=== PATIENT | male | born 1970 ===

== ENCOUNTER 2025-01-13 08:06 | Emergency (ER) | payer OTHER, SELFPAY ==
[2025-01-13 08:11] VITALS: BP 185/102; PULSE 67; RESP 16; TEMP 36.8; O2SAT 97; BMI 30.2
--- NOTE | 2025-01-13 08:28 | ED.GENADULT ---
HPI - General Adult General Chief complaint: Lower Extremity Swelling Stated complaint: shortness of breath, swelling in legs Time Seen by Provider: 01/13/25 08:14 History of Present Illness HPI narrative: Patient is a 54-year-old gentleman who presents with lower extremity swelling bilaterally as well as shortness of breath with exertion. He has had symptoms since he started on losartan after discontinuing losartan hydrochlorothiazide 3 weeks ago. Patient also takes metoprolol at 75 mg daily and atorvastatin at 10 mg daily. His blood pressures been elevated. He has had improvement of his lower extremity edema which again is symmetric as the day progresses. He has had no orthopnea no PND no chest pain at rest. He does have limited exercise capacity. No history of heart disease. Does have a hyperlipidemia and hypertension. Related Data Home Medications ?Medication ?Instructions ?Recorded ?Confirmed atorvastatin 10 mg tablet 10 mg PO QPM 01/13/25 01/13/25 losartan 100 mg tablet 100 mg PO DAILY 01/13/25 01/13/25 metoprolol succinate 50 mg 75 mg PO DAILY 01/13/25 01/13/25 tablet,extended release 24 hr Previous Rx's ?Medication ?Instructions ?Recorded valsartan 160 1 tab PO DAILY #30 tabs 01/13/25 mg-hydrochlorothiazide 12.5 mg tablet (Diovan HCT) Allergies Allergy/AdvReac Type Severity Reaction Status Date / Time sulfamethoxazole (From Allergy Verified 01/13/25 08:19 ) trimethoprim (From ) Allergy Verified 01/13/25 08:19 Review of Systems Status of ROS: Reports: 10 or more systems reviewed and unremarkable except as noted in History and below [facility] Medical History (Updated 01/13/25 @ 09:39 by Sammy Gillette MD) Hypertension ?I10 - Essential (primary) hypertension (ICD-10) Hyperlipidemia ?E78.5 - Hyperlipidemia, unspecified (ICD-10) Social History Smoking Status: Former smoker Second hand tobacco smoke exposure: Yes How often do you have a drink containing alcohol: 2-3 times a week How many standard drinks containing alcohol do you have on a typical day: 3 or 4 How often do you have six or more drinks on one occasion: Less than monthly AUDIT-C Alcohol total score: 5 Non-prescribed substance use: denies use Exam Narrative: Exam Narrative: EXAM GENERAL: Patient appears comfortable and well. EYES: No scleral icterus. LYMPH: No supraclavicular or cervical lymphadenopathy. SKIN: Visible skin seen during exam normal or with benign process only. EXT: Trace lower extremity edema. HEART: Regular rate and rhythm with no murmurs, rubs, or gallops. LUNGS: Clear to auscultation bilaterally with no crackles or wheezes. ABD: Soft, non tender, non distended. PSYCH: Good eye contact, speech is not pressured. Const: Vital Signs, click to edit/add: Vital Signs - 24 hr 01/13/25 08:11 Temperature 98.2 F Pulse Rate [Pulse Oximeter] 67 Respiratory Rate 16 Blood Pressure [Ri ght Upper Arm] 185/102 H Pulse Oximetry 97 Oxygen Delivery Me thod Room Air Course Course ED Course: Patient has normal exam with elevated blood pressure on vital signs. I did start the workup with EKG chest x-ray urinalysis comprehensive metabolic panel CBC troponin. Vital Signs Vital signs: Initial Vital Signs Temperature 98.2 F 01/13/25 08:11 Temperature Source Temporal Artery Scan 01/13/25 08:11 Pulse Rate 67 01/13/25 08:11 Respiratory Rate 16 01/13/25 08:11 Blood Pressure 185/102 H 01/13/25 08:11 Blood Pressure Mean 129 H 01/13/25 08:11 Pulse Oximetry 97 01/13/25 08:11 Oxygen Delivery Method Room Air 01/13/25 08:11 Vital Signs Temperature 98.2 F 01/13/25 08:11 Pulse Rate 67 01/13/25 08:11 Respiratory Rate 16 01/13/25 08:11 Blood Pressure 185/102 H 01/13/25 08:11 Pulse Oximetry 97 01/13/25 08:11 Oxygen Delivery Method Room Air 01/13/25 08:11 Temperature 98.2 F 01/13/25 08:11 Pulse Rate 67 01/13/25 08:11 Respiratory Rate 16 01/13/25 08:11 Blood Pressure 185/102 H 01/13/25 08:11 Pulse Oximetry 97 01/13/25 08:11 Oxygen Delivery Method Room Air 01/13/25 08:11 Medical Decision Making MDM Narrative Medical decision making narrative: Patient presents with lower extremity edema and poor blood pressure control since changing out losartan/hydrochlorothiazide to losartan alone. His blood pressure is elevated today is very anxious. I did do a thorough workup in he has no protein in his urine his electrolytes are stable his troponin is negative EKG shows normal sinus rhythm chest x-ray is unremarkable. We did have a nice discussion I do think the most reasonable thing at this time is stop his losartan start him on Diovan hydrochlorothiazide which I do have better luck with. He does see his primary doctor back in 1 week. Lab Data Labs: Lab Results 01/13/25 01/13/25 Range/Units 08:39 09:10 WBC 5.84 (4.50-11.00) K/uL RBC 4.42 (4.30-5.90) m/uL Hgb 12.9 L (13.5-17.5) gm/dL Hct 38.5 (37.0-53.0) % MCV 87 (80-100) fL MCH 29 (26-34) pg MCHC 34 (32-36) gm/dL RDW Coeff of Charlie 13.4 (11.5-15.5) % Plt Count 189 (140-440) K/uL Neut % (Auto) 71.5 (42.0-72.0) % Lymph % (Auto) 16.8 L (20-44) % Spink % (Auto) 6.5 (0.0-11.0) % Eos % (Auto) 3.4 (0.0-7.0) % Baso % (Auto) 0.3 (0.0-3.0) % Neut # (Auto) 4.17 (1.7-7.0) K/uL Lymph # (Auto) 1.00 (0.90-2.90) K/uL Spink # (Auto) 0.40 (0.00-0.90) K/UL Eos # (Auto) 0.20 (0.00-0.50) K/uL Baso # (Auto) 0.02 (0.00-0.30) K/uL Abs Immat Gran (auto) 0.09 (0.00-0.30) K/uL Imm/Tot Granulo (auto) 1.5 % Sodium 141 (135-149) mmol/L Potassium 4.1 (3.6-5.1) mmol/L Chloride 104 (96-114) mmol/L Carbon Dioxide 29 (20-32) mmol/L Anion Gap 8 (7-15) mEq/L BUN 10 (7-30) mg/dL Creatinine 0.9 (0.5-1.5) mg/dL Estimated Creat Clear 91.65 Estimated GFR 100 ml/min Glucose 107 (60-115) mg/dL Calcium 8.8 (8.4-10.6) mg/dL Total Bilirubin 0.7 (0.1-1.5) mg/dL AST 28 (12-35) U/L ALT 37 (4-50) U/L Alkaline Phosphatase 47 (40-150) U/L Troponin I < 0.01 L (0.01-0.04) ng/mL Total Protein 6.6 (6.0-8.3) g/dL Albumin 4.3 (3.3-5.0) g/dL Urine Color Yellow (Yellow) Urine Appearance Clear (Clear) Urine pH 7.5 (5.0-8.5) Ur Specific [place] 1.015 (1.000-1.030) Urine Protein Negative (Negative) Urine Glucose (UA) Negative (Negative) Urine Ketones Negative (Negative) Urine Blood Negative (Negative) Urine Nitrite Negative (Negative) Urine Bilirubin Negative (Negative) Urine Urobilinogen 0.2 (0.2-1.0) Ur Leukocyte Esterase Negative (Negative) Discharge Plan Discharge Clinical Impression: Hypertension Patient Disposition: Home, Self-Care Condition: Stable Instructions: Hypertension (ED) Additional Instructions: Stop losartan Start Diovan hydrochlorothiazide tomorrow Continue the rest severe medications Limit salt Follow-up with your doctor next week as scheduled. Activity Level: No Restrictions Discharge Diet: Regular Prescriptions: New valsartan-hydrochlorothiazide [Diovan HCT] 160-12.5 mg tablet 1 tab PO DAILY Qty: 30 2RF No Action atorvastatin 10 mg tablet 10 mg PO QPM metoprolol succinate 50 mg tablet extended release 24 hr 75 mg PO DAILY losartan 100 mg tablet 100 mg PO DAILY Follow Up/Referrals: Tony Rush MD [Primary Care Provider] - Stand Alone Forms: Fraxion Info Instructions
[2025-01-13 08:45] LABS: Basophils Absolute Auto 0.02 K/uL (0.00-0.30); Basophils Percent Auto 0.3 % (0.0-3.0); Eosinophils Percent Auto 3.4 % (0.0-7.0); Hematocrit 38.5 % (37.0-53.0); Hemoglobin* 12.9 gm/dL (13.5-17.5); Immature Granulocytes Abs Auto 0.09 K/uL (0.00-0.30); Immature Granulocytes Pct Auto 1.5 %; Lymphocytes Percent Auto 16.8 % (20-44); Mean Corpuscular HGB Conc 34 gm/dL (32-36); Mean Corpuscular Hemoglobin 29 pg (26-34); Mean Corpuscular Volume 87 fL (80-100); Monocytes Percent Auto 6.5 % (0.0-11.0); Neutrophils Absolute Auto 4.17 K/uL (1.7-7.0); Neutrophils Percent Auto 71.5 % (42.0-72.0); Platelet Count* 189 K/uL (140-440); RDW Coefficient of Variation % 13.4 % (11.5-15.5); Red Blood Count 4.42 m/uL (4.30-5.90); White Blood Count* 5.84 K/uL (4.50-11.00)
--- OUTSIDE RECORDS SUMMARY | 2025-01-13 08:45 | XMS_ITS | Clinical Summary ---
Author Organization [employer] [facility] Address [address] [place] [id number] Care Team Providers Care Insurance Biller Name Role Phone Tony Rush MD Primary Care Provider [phone] Allergies Active Allergy Reactions Criticality Noted Date Comments Sulfamethoxazole-Trimethopri m *Unknown - Childhood Rxn Unknown 09/25/2010 Medications ibuprofen (ADVIL; MOTRIN) 600 mg tablet Take 1 tablet by mouth 4 times daily if needed. Maximum of 3200 mg in 24 hours. 0 7 Active acetaminophen (TYLENOL) 500 mg capsule Take 1,000 mg by mouth. Active benzonatate (TESSALON) 100 mg capsuleIndications :SOB (shortness of breath),Cough TAKE 1 CAPSULE(100 MG) BY MOUTH THREE TIMES DAILY NEEDED FOR COUGH 21 Capsule 2 1 Active meclizine (ANTIVERT) 25 mg tabletIndications: Vertigo Take 0.5-1 Tablets (12.5-25 mg) by mouth 3 times daily if needed for Vertigo. 30 Tablet 2 Active ondansetron (ZOFRAN ODT) 4 mg disintegrating tabletIndications: Vertigo Place 1 Tablet (4 mg) on the tongue every 8 hours if needed for Nausea/Vomi ting. 12 Tablet 2 Active LORazepam (ATIVAN) 0.5 mg tabIndications:Eduarda tigo Take 1 Tablet (0.5 mg) by mouth at bedtime if needed (Vertigo). 10 Tablet 2 Active atorvastatin (LIPITOR) 10 mg tabletIndications: Hypercholesterolem ia Take 1 Tablet (10 mg) by mouth at bedtime. 90 Tablet 3 4 Active metoprolol succinate (TOPROL XL) 50 mg sustained-release tabletIndications: Frequent PVCs,HTN (hypertension) Take 1.5 Tablets (75 mg) by mouth once daily. 135 Tablet 3 4 Active losartan (COZAAR) 100 mg tabletIndications: HTN (hypertension) Take 1 Tablet (100 mg) by mouth once daily. 90 Tablet 3 5 Active losartan-hydrochlo rothiazide (HYZAAR) 100-12.5 mg tabletIndications: HTN (hypertension) Take 1 Tablet by mouth once daily. 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 Chronic midline low back pain 01/16/2017 Hypercholesterolemia 05/11/2012 Resolved Problems Problem Noted Date Diagnosed Date Resolved Date Chronic low back pain 01/16/20172017 Kidney stone 09/14/2018 Encounters Date Type Department Care Team Description 01/13/2025 Nurse Triage [facility] [address] [place] [address] Tony Rush MD Shortness Of Breath 01/13/2025 Telephone [facility] [address] [place] [address] Toyn Rush MD Error-please disregard 12/23/2024 3:[address] Office Visit [facility] [address] [place] [address] Tony Rush MD Blood Pressure 12/23/2024 Travel 11/17/[address] [facility] [address] [place] [phone] Jenni Britton DO Dizziness from Last 3 Months Immunizations Name Administration Dates Next Due Td (Age >=7 Years) 09/06/2009,10/11/1980 Tdap 11/02/2015 Family History Medical History Relation Name Comments Brain cancer Mother Diabetes Mother Relation Name Status Comments Father Mother Alive Social History Tobacco Use Types Packs/Day Years Used Date Smoking Tobacco: Former Cigarettes Q uit: 07/01/2018 Smokeless Tobacco: Never Tobacco Cessation:Counseling Given: Not Answered Passive Exposure Comments:mom and dad smoked in child shane life Alcohol Use Standard Drinks/Week Comments Yes 5 (1 standard drink = 0.6 oz pur e alcohol) rare PHQ-2 Answer Date Recorded PHQ-2 TOTAL SCORE 0 08/03/2024 Financial Resource Strain Answer Date R ecorded Difficulty of Paying Living Expenses Not on file 11/23/2021 Difficulty of Paying Living Expenses Not on file 11/23/2021 Sex and Gender Information Value Date Recorded Sex Assigned at Not on file Legal Sex Male 6:13 AM [address] Gender Identity Not on file Sexual Orientation Not on file Obstetrics History Last Filed Vital Signs Vital Sign Reading Time Taken Comments Blood Pressure 111/72 12/23/2024 3:18 PM [address] Pulse 83 12/23/2024 3:18 PM [address] Temperature 37 C (98.6 F) 06/30/2022 12:48 PM CDT Respiratory Rate 16 08/03/2024 11:31 AM CDT Oxygen Saturation 97% 12/23/2024 3:18 PM [address] Inhaled Oxygen Concentration - - Weight 90.5 kg (199 lb 8 oz) 12/23/2024 3:18 PM [address] Height 177.3 cm (5' 9.8) 05/21/2023 9:40 AM CDT Body Mass Index 28.79 05/21/2023 9:40 AM CDT Plan of Treatment Upcoming Encounters Date Type Department Care Team (Late st Contact Info) Description 01/20/2025 3:15 PM CLAIM[address] Office Visit [facility] [place] [address] [address] Tony Rush MD [address] [place] [address] Health Maintenance Due Date Last Done Comments HIV for age 15-65 1983 Pneumococcal series for age 50+ (1 of 2 - PCV) 1987 Colonoscopy through age 75 2013 Zoster (shingles) series for age 50+ (1 of 2) 2018 BMI (ht and wt on same day) for age 18+ 05/21/2024 05/21/2023, 06/07/2021, 12/08/2019, Additional history exists COVID-19 vaccine series ( season) 2024 Influenza for age 50-64 07/24/2024 Depression screening for age 12+ 08/03/2025 08/03/2024, 08/01/2024, 05/21/2023, Additional history exists Tetanus booster 11/02/2025 11/02/2015, 08/23, 10/11/1980 Lipids for age 45-75 08/03/2029 08/03/2024, 05/21/2023, 08/04/2022, Additional history exists Tdap Completed 11/02/2015 Hepatitis C screening for ag e 18-79 Completed 12/08/2019 Procedures Procedure Name Priority Date/Time Associated Diagnosis Comments LIPID PANEL W REFLEX MEASURED LDL Routine 08/03/2024 12:54 PM CDT Hypercholesterolemi a HTN (hypertension) ANTI HCV Routine 12/08/2019 2:40 [address] FHx: hepatitis Elevated liver enzymes from Last 3 Months or Most Recently Relevant to Health Maintenance Results * (ABNORMAL) LIPID PANEL W REFLEX MEASURED LDL (08/03/2024 12:54 PM CDT) CHOLESTEROL,TOTAL 158 100 - 199 mg/dL 08/03/2024 1:52 PM CDT [facility] Comment: Cholesterol, Total Reference Ranges Desirable <200 mg/dL Borderline 200-239 mg/dL High >=240 mg/dL TRIGLYCERIDES 260(H) <150 mg/dL 08/03/2024 1:52 PM [facility] HDL CHOLESTEROL 37(L) >40 mg/dL 1:52 PM [facility] NON-HDL CHOLESTEROL 121 <145 mg/dl 08/03/2024 1:52 PM [facility] CHOL/HDL RATIO 4.27 <4.50 08/03/2024 1:52 PM [facility] LDL CHOLESTEROL 69 <=130 mg/dL 08/03/2024 1:52 PM [facility] VLDL CHOLESTEROL 52(H) <=30 mg/dL 08/03/2024 1:52 PM [facility] PROVIDER ORDERED STATUS RANDOM 08/03/2024 1:52 PM [facility] Blood BLOOD SPECIMEN / Unknown Venipuncture / Unknown 08/03/2024 12:54 PM CDT 08/03/2024 12:57 PM CDT Jenni Britton DO CHEMISTRY Final Result [facility] [address] [place] [address] * ANTI HCV (12/08/2019 2:40 PM [address]) Pathologist [facility] HEPATITIS C ANTIBODY Non-React raquel Non-React raquel 12/08/2019 9:34 [address] [email or web address] Comment:Antibodies to HCV no t detected; does not exclude the possibility of exposure to HCV. Blood BLOOD SPECIMEN / Unknown Venipuncture / Unknown 12/08/2019 2:40 PM [address] 12/08/2019 2:40 PM [address] Jenni Britton DO SEND OUTS Final Result [facility] [address] [place] [address], [place] from Last 3 Months or Most Recently Relevant to Health Maintenance Insurance [facility] [place] [phone] Care Teams Insurance Biller Relationship Specialty Start Date End Date Tony Rush MD [address] [place] [address] PCP - General Family Practice 12/23/24
[2025-01-13 08:46] LABS: Slide Review Reflex No
[2025-01-13 08:57] LABS: Albumin* 4.3 g/dL (3.3-5.0); Chloride* 104 mmol/L (96-114)
[2025-01-13 08:58] LABS: Potassium* 4.1 mmol/L (3.6-5.1); Sodium* 141 mmol/L (135-149)
[2025-01-13 09:00] LABS: Alkaline Phosphatase* 47 U/L (40-150); Anion Gap 8 mEq/L (7-15); Aspartate Amino Transferase* 28 U/L (12-35); Bilirubin Total* 0.7 mg/dL (0.1-1.5); Blood Urea Nitrogen* 10 mg/dL (7-30); Carbon Dioxide* 29 mmol/L (20-32); Creatinine* 0.9 mg/dL (0.5-1.5); Est. Creatinine Clearance* 91.65; Estimated Glomerular Filt Rate 100 ml/min; Total Protein* 6.6 g/dL (6.0-8.3)
[2025-01-13 09:01] LABS: Alanine Aminotransferase* 37 U/L (4-50); Calcium* 8.8 mg/dL (8.4-10.6); Glucose* 107 mg/dL (60-115)
[2025-01-13 09:13] LABS: Troponin I* < 0.01 ng/mL (0.01-0.04)
[2025-01-13 09:20] LABS: Appearance Urine Clear (Clear); Bilirubin Urine Negative (Negative); Blood Urine Negative (Negative); Color Urine Yellow (Yellow); Glucose Urine Negative (Negative); Ketones Urine Negative (Negative); Leukocyte Esterase Urine Negative (Negative); Nitrite Urine Negative (Negative); Protein Urine Negative (Negative); Specific Gravity Urine 1.015 (1.000-1.030); Urobilinogen Urine 0.2 (0.2-1.0); pH Urine 7.5 (5.0-8.5)
[2025-01-13 09:45] VITALS: BP 155/106; PULSE 69; RESP 16; O2SAT 96
== END 2025-01-13 09:50 | disposition home or self-care (01) ==
PROVIDERS: Emergency Provider Internal Medicine; PCP Surgery
DX: I10 Essential (primary) hypertension (principal)
CPT/HCPCS: 36415; 71046; 80053; 81003; 84484; 85025; 93005; 99283; 99284